=== PATIENT | female | born 1955 | race Caucasian/White ===

== ENCOUNTER 2020-02-16 05:38 | Day surgery (SDC) | payer MEDICARE, OTHER ==
[2020-02-16] MEDS ORDERED: LACTATED RINGERS 1,000 ML ONE (06:21)
[2020-02-16] MEDS ORDERED: PROPOFOL 200 MG/20 ML VIAL IV ONE (07:00)
[2020-02-16] MEDS ORDERED: LIDOCAINE 1% 10 ML VIAL INJ ONE (07:00)
[2020-02-16] MEDS ORDERED: fentaNYL CITRATE INJ 50 MCG/ML AMP ONE (07:59)
[2020-02-16] MEDS ORDERED: KETAMINE HCL 100 MG/ML VIAL ONE (07:59)
[2020-02-16] MEDS ORDERED: MIDAZOLAM INJ 2 MG/2 ML VIAL ONE (07:59)
--- NOTE | 2020-02-16 10:10 | OP ---
DATE OF PROCEDURE: 02/16/20 PREOPERATIVE DIAGNOSIS: 1. Abdominal pain. 2. Gastritis. 3. Screening colonoscopy. POSTOPERATIVE DIAGNOSIS: 1. Abdominal pain. 2. Gastritis. 3. Screening colonoscopy. PROCEDURE: 1. EGD. 2. Colonoscopy. SURGEON: Darshan Jensen MD FINDINGS: Normal EGD. Normal colonoscopy. PROCEDURE: In lateral position with bite block in place, the endoscope was inserted without difficulty and easily passed through the esophagus and into the second portion of the duodenum. Upon withdrawal, the duodenal surfaces appeared normal, as did the antrum. There was no evidence of gastritis or ulcers. Retroflexion was normal as well with no evidence of a hiatal hernia. The GE junction appeared normal, as did the esophagus. The area was aspirated and all mucus was removed upon withdrawal. She was then repositioned. Digital rectal exam was normal. The colonoscope was introduced. She did have a somewhat spastic colon that was difficult to distend, but we ultimately made it to the cecum as identified by the ileocecal valve and and appendiceal orifice. Upon withdrawal, all mucosal surfaces appeared normal and no polyps were seen on a better exam coming out. She did distend normally. No significant polyps were identified. There were some non- thrombosed internal hemorrhoids and small external hemorrhoids. The patient tolerated the procedure well. She was awakened and taken to Recovery to be discharged. #[id number] cc: Sreekanth Cabezas MD [facility]
[2020-02-19 11:33] VITALS: BP 118/72; TEMP 97.6; O2SAT 98
== END 2020-02-16 10:18 | disposition home or self-care (01) ==
LOC: AMB 05:38
PROVIDERS: ATTEND Surgery
DX: Z12.11 Encounter for screening for malignant neoplasm of colon (principal); R10.13 Epigastric pain; K64.8 Other hemorrhoids; K64.4 Residual hemorrhoidal skin tags; K59.00 Constipation, unspecified; I10 Essential (primary) hypertension; E78.00 Pure hypercholesterolemia, unspecified; K21.9 Gastro-esophageal reflux disease without esophagitis; Z79.899 Other long term (current) drug therapy
CPT/HCPCS: 00812; 36415; 36416; 43235; 82948; G0102; J2250; J3010; J3490; J7120